=== PATIENT | female | born 1965 | race Caucasian/White ===

== ENCOUNTER 2017-04-10 15:06 | Emergency (ER) | payer MEDICAID, OTHER ==
[~2017-04-10] VITALS: Ht 165.1 cm; Wt 66.9 kg
[~2017-04-10 15:06] MED LIST: AUGM875T27 PO; IBUP-1022 PO; IBUP100S5 PO; KETO-13 PO; NICO21PAT TD; NO HISTORICAL MEDS; NORC5TAB PO
[2017-04-10 15:07] VITALS: BP 143/86
[2017-04-10] MEDS ORDERED: ADACEL/BOOSTRIX VACCINE (DIPHTH/PERTUSS/ACELL/TETANUS)0.5ML SYR (90715) IM ONE (15:30)
[2017-04-10] MEDS ORDERED: IBUP80TA PO (15:35)
[2017-04-10] MEDS ORDERED: BACT800T5 PO (15:35)
[2017-04-10] MEDS ORDERED: BACTRIM 160MG/800MG DS TAB PO ONE (15:45)
== END 2017-04-10 16:00 | disposition home or self-care (01) ==
LOC: MERGE 15:06 → M ED 15:06
DX: S91.332A Puncture wound without foreign body, left foot, initial encounter (principal); W45.0XXA Nail entering through skin, initial encounter; Y92.099 Unspecified place in other non-institutional residence as the place of occurrence of the external cause; Y93.9 Activity, unspecified; Y99.9 Unspecified external cause status; F17.200 Nicotine dependence, unspecified, uncomplicated; Z88.0 Allergy status to penicillin

== ENCOUNTER 2017-05-07 14:16 | Emergency (ER) | payer OTHER ==
[~2017-05-07] VITALS: Ht 165.1 cm; Wt 63.6 kg
[~2017-05-07 14:16] MED LIST changes: +BACT800T5 PO; +IBUP80TA PO
[2017-05-07] MEDS ORDERED: IBUP-1114 PO (14:33)
--- NOTE | 2017-05-07 15:59 | REP ---
No rib fracture or incidental bony destructive lesion. There are clips in the gallbladder fossa. There is a right upper quadrant calcification 7 mm in diameter. This overlies the liver and right kidney. It appears to be somewhat posterior and suggests an intrarenal calculus. Impression: No rib fracture seen. No active disease in the chest. Post cholecystectomy. Possible 7 mm intrarenal calculus right kidney. Signed by Lopez Clark MD 05/07/2017 05:11 P
[2017-05-07] MEDS ORDERED: IBUP-1022 PO (16:23)
[2017-05-07] MEDS ORDERED: NORCOTAB PO (16:23)
[2017-05-07 16:29] VITALS: BP 148/82
== END 2017-05-07 16:33 | disposition home or self-care (01) ==
LOC: M ED 14:16
DX: S20.219A Contusion of unspecified front wall of thorax, initial encounter (principal); X58.XXXA Exposure to other specified factors, initial encounter; Y92.9 Unspecified place or not applicable; Y93.9 Activity, unspecified; Y99.9 Unspecified external cause status; F17.200 Nicotine dependence, unspecified, uncomplicated; Z88.0 Allergy status to penicillin

== ENCOUNTER 2017-10-03 06:10 | Emergency (ER) | payer OTHER, SELFPAY ==
[2017-10-03 07:19] LABS: BASO % 0.6 % (0.0-1.0); EOS # 0.1 10^3/uL (0.0-0.50); HEMATOCRIT 42.1 % (36.0-47.0); HEMOGLOBIN 14.8 g/dl (12.0-16.0); IMMATURE GRANULOCYTE % 0.1 % (0-0); LYMPH # 2.6 10^3/uL (1.5-4.5); LYMPH % 37.9 % (24.0-44.0); MEAN CORPUSCULAR HEMOGLOBIN 30.8 pg (27.0-33.0); MEAN CORPUSCULAR HGB CONC 35.2 g/dl (32.0-36.5); MEAN CORPUSCULAR VOLUME 87.7 fl (80.0-96.0); MONO # 0.3 10^3/uL (0.0-0.8); MONO % 4.5 % (0.0-5.0); NEUTROPHILS # 3.8 10^3/uL (1.8-7.7); NEUTROPHILS % 54.9 % (36.0-66.0); PLATELET COUNT, AUTOMATED 193 10^3/uL (150-450); RED CELL DISTRIBUTION WIDTH 11.3 % (11.5-14.5); WHITE BLOOD COUNT 6.9 10^3/uL (4.0-10.0)
[2017-10-03] MEDS: MORPHINE 2 MG/ML 1ML SYRINGE IV (07:19)
[2017-10-03] MEDS: ONDANSETRON 4MG/2ML VIAL (J2405) IV (07:19)
[2017-10-03] MEDS: NS 1,000 ML IV (07:19)
[2017-10-03 07:28] LABS: KETONE, URINE AUTO RFX TRACE mg/dL (NEGATIVE); LEUKOCYTE ESTERASE UR AUTO RFX NEGATIVE (NEGATIVE); NITRITE, URINE AUTO RFX NEGATIVE (NEGATIVE); RBC, URINE AUTO RFX 1 /HPF (0-3); SPECIFIC GRAVITY UR AUTO RFX 1.013 (1.002-1.035); SQUAM EPITHELIAL CELL UR AURFX 1 /HPF (0-6); WBC, URINE AUTO RFX 4 /HPF (0-3)
[2017-10-03 07:29] LABS: ALBUMIN 4.2 GM/DL (3.2-5.2); ALBUMIN/GLOBULIN RATIO 1.14 (1.00-1.93); ALKALINE PHOSPHATASE 76 U/L (45-117); ALT/SGPT 36 U/L (12-78); AMYLASE 60 U/L (25-115); ANION GAP 6 MEQ/L (8-16); AST/SGOT 23 U/L (7-37); BILIRUBIN,DIRECT 0.1 MG/DL (0.0-0.2); BILIRUBIN,TOTAL 0.4 MG/DL (0.2-1.0); BLOOD UREA NITROGEN 18 MG/DL (7-18); CALCIUM LEVEL 9.1 MG/DL (8.5-10.1); CARBON DIOXIDE LEVEL 27 MEQ/L (21-32); CHLORIDE LEVEL 109 MEQ/L (98-107); CREATININE FOR GFR 0.79 MG/DL (0.55-1.02); GLOMERULAR FILTRATION RATE > 60.0 (>51); GLUCOSE, FASTING 94 MG/DL (70-105); LIPASE 92 U/L (73-393); POTASSIUM SERUM 3.7 MEQ/L (3.5-5.1); SODIUM LEVEL 142 MEQ/L (136-145); TOTAL PROTEIN 7.9 GM/DL (6.4-8.2)
== END 2017-10-03 10:08 | disposition home or self-care (01) ==
LOC: M ED 06:10
DX: K59.00 Constipation, unspecified (principal); R03.0 Elevated blood-pressure reading, without diagnosis of hypertension; F17.200 Nicotine dependence, unspecified, uncomplicated; Z88.0 Allergy status to penicillin
CPT/HCPCS: J2405

== ENCOUNTER 2018-09-28 12:41 | Emergency (ER) | payer MEDICARE, OTHER ==
[~2018-09-28] VITALS: Ht 167.6 cm; Wt 68.2 kg
[~2018-09-28 12:41] MED LIST changes: +COLA100C5 PO; +IBUP-1114 PO; +MIRA3350 PO; +NORCOTAB PO
[2018-09-28] MEDS ORDERED: IBUPROFEN 600 MG TAB PO ONE (13:30)
[2018-09-28] MEDS ORDERED: PHENAZOPYRIDINE 100 MG TAB PO ONE (13:30)
[2018-09-28] MEDS ORDERED: CIPROFLOXACIN 500 MG TAB PO ONE (13:30)
[2018-09-28 13:33] VITALS: BP 194/89
[2018-09-28] MEDS ORDERED: CIPR-249 PO (13:40)
[2018-09-28] MEDS ORDERED: DIFL150T PO (13:40)
[2018-09-28] MEDS ORDERED: PYRI1TAB5 PO (13:40)
[2018-09-28 14:51] LABS: CHLAMYDIA DNA AMPLIFICATION NEGATIVE (NEGATIVE); GC DNA AMPLIFICATION NEGATIVE (NEGATIVE)
[2018-09-29] MEDS ORDERED: LISI10TA4 PO (21:20)
== END 2018-09-28 13:48 | disposition home or self-care (01) ==
LOC: M ED 12:41
DX: N39.0 Urinary tract infection, site not specified (principal); B37.3 Candidiasis of vulva and vagina; Z88.0 Allergy status to penicillin

== ENCOUNTER 2018-09-29 19:42 | Emergency (ER) | payer MEDICARE ==
[~2018-09-29] VITALS: Ht 167.6 cm; Wt 68.2 kg
[~2018-09-29 19:42] MED LIST changes: +CIPR-249 PO; +DIFL150T PO; +PYRI1TAB5 PO
[2018-09-29] MEDS ORDERED: MECLIZINE 25 MG TABLET PO ONE (20:15)
[2018-09-29] MEDS ORDERED: NS 1,000 ML IV ONE (20:15)
[2018-09-29] MEDS ORDERED: METOCLOPRAMIDE INJ 10MG/2ML VIAL (J2765) IV ONE (20:15)
[2018-09-29 20:26] LABS: BASO % 0.4 % (0.0-1.0); EOS # 0.1 10^3/uL (0.0-0.50); EOS % 1.8 % (0.0-3.0); HEMOGLOBIN 14.6 g/dl (12.0-15.5); LYMPH # 1.4 10^3/uL (1.5-4.5); LYMPH % 26.3 % (24.0-44.0); MEAN CORPUSCULAR HEMOGLOBIN 30.6 pg (27.0-33.0); MEAN CORPUSCULAR VOLUME 90.1 fl (80.0-96.0); MONO # 0.4 10^3/uL (0.0-0.8); MONO % 7.2 % (0.0-5.0); NEUTROPHILS # 3.3 10^3/uL (1.8-7.7); NEUTROPHILS % 63.7 % (36.0-66.0); PLATELET COUNT, AUTOMATED 201 10^3/uL (150-450); RED BLOOD COUNT 4.77 10^6/uL (4.00-5.40); WHITE BLOOD COUNT 5.1 10^3/uL (4.0-10.0)
[2018-09-29] MEDS ORDERED: LABETALOL HCL 100 MG/20 ML VIAL IV STA (20:44)
[2018-09-29 20:59] VITALS: BP 175/98
[2018-09-29 21:04] LABS: ALBUMIN 3.4 GM/DL (3.2-5.2); ALT/SGPT 36 U/L (12-78); BILIRUBIN,DIRECT 0.1 MG/DL (0.0-0.2); BILIRUBIN,TOTAL 0.3 MG/DL (0.2-1.0); BLOOD UREA NITROGEN 14 MG/DL (7-18); CALCIUM LEVEL 8.7 MG/DL (8.5-10.1); CARBON DIOXIDE LEVEL 24 MEQ/L (21-32); CHLORIDE LEVEL 109 MEQ/L (98-107); CPK CREATINE PHOSPHOKINASE 47 U/L (26-192); CREATININE FOR GFR 0.68 MG/DL (0.55-1.30); GLOMERULAR FILTRATION RATE > 60.0 (>51); GLUCOSE, FASTING 94 MG/DL (70-100); MB/CK RELATIVE INDEX 2.13 (< OR =4); POTASSIUM SERUM 3.9 MEQ/L (3.5-5.1); SODIUM LEVEL 144 MEQ/L (136-145); TOTAL PROTEIN 6.9 GM/DL (6.4-8.2); TROPONIN I < 0.02 NG/ML (< 0.10)
[2018-09-29 21:05] LABS: ACETAMINOPHEN LEVEL < 2.0 UG/ML (10.0-30.0); ETHYL ALCOHOL (ETHANOL) < 0.003 % (0.000-0.010)
--- NOTE | 2018-09-29 21:12 | REPVR ---
EXAM: CT Head Without Contrast EXAM DATE/TIME: 09/29/2018 8:25 PM CLINICAL HISTORY: 53 years old, female; Signs and symptoms; Altered mental status/memory loss TECHNIQUE: Axial computed tomography images of the head/brain without contrast. All CT scans at this facility use at least one of these dose optimization techniques: automated exposure control; mA and/or kV adjustment per patient size (includes targeted exams where dose is matched to clinical indication); or iterative reconstruction. COMPARISON: No relevant prior studies available. FINDINGS: Brain: No CT evidence of acute intracranial hemorrhage or acute territorial infarction. No significant mass effect or midline shift. Basal cisterns patent. Ventricles: Normal in size and configuration. Bones/joints: No acute osseous abnormality. Sinuses: Grossly unremarkable. Mastoid air cells: Grossly unremarkable. Soft tissues: Grossly unremarkable. IMPRESSION: No CT evidence of acute intracranial pathology. Electronically signed by: Kelechi Cesar On 09/29/2018 21:11:49 PM
[2018-09-29] MEDS ORDERED: LISINOPRIL 10 MG TAB PO ONE (21:15)
[2018-09-29] MEDS ORDERED: LISI10TA4 PO (21:20)
--- NOTE | 2018-09-30 08:27 | REP ---
Chest x-ray: Two views. History: Altered mental status. Comparison study: October 03, 2017. Findings: The lungs are symmetrically aerated and clear. Pleural angles are sharp. Heart size is normal. No significant bony abnormality is seen. Impression: Negative chest x-ray. Electronically Signed by Lopez Clark MD 09/30/2018 08:18 A
--- NOTE | 2018-09-30 14:42 | ECGEPIP ---
Stationary ECG Study [facility] - ED Test Date: 2018-09-29 Pat Name: SHEILA WALLACE Department: Room: - Gender: F Chemistry Teacher: : 1965 Requested By: CORA SUAZO Order Number: [id number] Reading MD: Jo-Ann Sotelo Measurements Intervals [place] Rate: 57 P: 69 [place]: 163 QRS: -9 QRSD: 84 T: 24 QT: 392 QTc: 384 Interpretive Statements SINUS BRADYCARDIA SEPTAL MYOCARDIAL INFARCTION, PROBABLY OLD SIMILAR 10/03/17 Electronically Signed On 09-30-2018 14:42:18 EST by Jo-Ann Sotelo
== END 2018-09-29 21:46 | disposition home or self-care (01) ==
LOC: M ED 19:42
DX: N39.0 Urinary tract infection, site not specified (principal); I10 Essential (primary) hypertension; Z82.49 Family history of ischemic heart disease and other diseases of the circulatory system; Z79.899 Other long term (current) drug therapy; Z88.0 Allergy status to penicillin; F17.210 Nicotine dependence, cigarettes, uncomplicated
CPT/HCPCS: 70450; 71046; 80048; 80076; 82550; 82553; 84443; 84484; 85025; 93005; 93041; 94760; 96374; 99284; G0480; J2765

== ENCOUNTER 2018-12-09 19:28 | Emergency (ER) | payer MEDICARE, OTHER ==
[~2018-12-09] VITALS: Ht 165.1 cm; Wt 68.2 kg
[2018-12-09 19:28] VITALS: BP 153/93
[~2018-12-09 19:28] MED LIST changes: +HYDR-3715 PO; +LISI10TA4 PO; +NICO21DI3 TD; -NICO21PAT TD; -NORCOTAB PO
[2018-12-09] MEDS ORDERED: ONDANSETRON 4MG/2ML VIAL (J2405) IV ONE (21:15)
[2018-12-09] MEDS ORDERED: NS 1,000 ML IV ONE (21:15)
--- NOTE | 2018-12-09 21:29 | ECGEPIP ---
Stationary ECG Study [facility] - ED Test Date: 2018-12-09 Pat Name: SHEILA WALLACE Department: Room: - Gender: F Software Trainer: HERLINDA : 1965 Requested By: LIT JACOBSEN PA-C Order Number: [id number] Reading MD: Jo-Ann Sotelo Measurements Intervals [place] Rate: 74 P: 70 DC: 158 QRS: -20 QRSD: 86 T: 40 QT: 365 QTc: 407 Interpretive Statements SINUS RHYTHM DELAYED R PROGRESSION NSTTW ABNORMALITY INCREASED RATE 09/29/18 Electronically Signed On 12-09-2018 21:28:40 EDT by Jo-Ann Sotelo
[2018-12-09 22:05] LABS: BASO % 0.6 % (0.0-1.0); EOS # 0.1 10^3/uL (0.0-0.50); EOS % 1.1 % (0.0-3.0); HEMOGLOBIN 15.5 g/dl (12.0-15.5); LYMPH # 0.7 10^3/uL (1.5-4.5); LYMPH % 10.7 % (24.0-44.0); MEAN CORPUSCULAR HGB CONC 33.7 g/dl (32.0-36.5); MONO # 0.5 10^3/uL (0.0-0.8); MONO % 7.7 % (0.0-5.0); NEUTROPHILS % 79.7 % (36.0-66.0); PLATELET COUNT, AUTOMATED 178 10^3/uL (150-450); RED BLOOD COUNT 5.17 10^6/uL (4.00-5.40); WHITE BLOOD COUNT 6.2 10^3/uL (4.0-10.0)
[2018-12-09 22:23] LABS: INR 1.07; PARTIAL THROMBOPLASTIN TIME 28.6 SECONDS (25.4-37.6)
[2018-12-09 22:26] LABS: ALT/SGPT 29 U/L (12-78); BILIRUBIN,TOTAL 0.7 MG/DL (0.2-1.0); BLOOD UREA NITROGEN 12 MG/DL (7-18); CALCIUM LEVEL 9.2 MG/DL (8.5-10.1); CARBON DIOXIDE LEVEL 26 MEQ/L (21-32); CHLORIDE LEVEL 107 MEQ/L (98-107); CK-MB VALUE MASS < 1.0 NG/ML (<3.6); CPK CREATINE PHOSPHOKINASE 44 U/L (26-192); CREATININE FOR GFR 0.88 MG/DL (0.55-1.30); GLOMERULAR FILTRATION RATE > 60.0 (>51); GLUCOSE, FASTING 107 MG/DL (70-100); MB/CK RELATIVE INDEX 2.27 (< OR =4); SODIUM LEVEL 141 MEQ/L (136-145)
[2018-12-09 22:27] LABS: BILIRUBIN,DIRECT 0.2 MG/DL (0.0-0.2); C REACTIVE PROTEIN QUANTITATIV 0.98 MG/DL (0.00-0.30); LIPASE 80 U/L (73-393); NT-PRO BNP 98 PG/ML (<125); TOTAL PROTEIN 7.5 GM/DL (6.4-8.2); TROPONIN I < 0.02 NG/ML (< 0.10)
[2018-12-09] MEDS ORDERED: ISOVUE-370 76% 125ML VIAL (Q9967 PER ML) As Ordered ONE (22:31)
[2018-12-09 22:38] LABS: ERYTHROCYTE SEDIMENTATION RATE 5 mm/hr (0-30)
--- NOTE | 2018-12-09 23:36 | REPVR ---
EXAM: CT Angiography Chest With Contrast EXAM DATE/TIME: 12/09/2018 10:34 PM CLINICAL HISTORY: 53 years old, female; Pain; Chest pain; Additional info: SOB TECHNIQUE: Imaging protocol: Axial computed tomographic angiography images of the chest with intravenous contrast using CT angiography protocol. Coronal and sagittal reformatted images were created and reviewed. 3D rendering: MIP reconstructed images were created and reviewed. Radiation optimization: All CT scans at this facility use at least one of these dose optimization techniques: automated exposure control; mA and/or kV adjustment per patient size (includes targeted exams where dose is matched to clinical indication); or iterative reconstruction. Contrast material: ISOVUE 370 Contrast volume: 100 ml Contrast route: IV COMPARISON: No relevant prior studies available. FINDINGS: Pulmonary arteries: Contrast opacification satisfactory. No intraluminal filling defect. Aorta: Unremarkable. No aneurysm or dissection. Lungs: Mild central peribronchial thickening, suggestive of airway inflammation. No consolidation. Pleural space: Unremarkable. No pneumothorax. No pleural effusion. Heart: Unremarkable. No cardiomegaly. No pericardial effusion. Mediastinum: Small hiatal hernia. Lymph nodes: No pathologically enlarged lymph nodes. Bones/joints: No acute osseous abnormality. Osteopenia. Mild degenerative changes. Soft tissues: Unremarkable. IMPRESSION: 1. No CT evidence of pulmonary embolism. 2. Mild central peribronchial thickening, suggestive of airway inflammation. 3. Additional findings, as above. Electronically signed by: Kelechi Cesar On 12/09/2018 23:36:24 PM
--- NOTE | 2018-12-09 23:43 | REPVR ---
EXAM: CT Abdomen and Pelvis With Contrast EXAM DATE/TIME: 12/09/2018 10:34 PM CLINICAL HISTORY: 53 years old, female; Pain; Abdominal pain; Generalized; Additional info: SOB TECHNIQUE: Imaging protocol: Axial computed tomography images of the abdomen and pelvis with intravenous contrast. Coronal and sagittal reformatted images were created and reviewed. Radiation optimization: All CT scans at this facility use at least one of these dose optimization techniques: automated exposure control; mA and/or kV adjustment per patient size (includes targeted exams where dose is matched to clinical indication); or iterative reconstruction. Contrast material: ISOVUE 370 Contrast volume: 100 ml Contrast route: IV COMPARISON: CT ABD PELVIS W/O CONTRAST 10/03/2017 8:49 AM FINDINGS: ABDOMEN: Liver: Mild hepatomegaly. Claudia-centimeter hemangiomata in each hepatic lobe. Gallbladder and bile ducts: Status post cholecystectomy. No biliary ductal dilatation. Pancreas: Unremarkable. Spleen: Unremarkable. Adrenals: Unremarkable. Kidneys and ureters: Left renal cortical scarring with associated parenchymal calcification. 5 mm nonobstructing right renal calculus. No hydronephrosis. Stomach and bowel: Moderate amount of retained stool in the colon. No obstruction. No bowel wall thickening. No pneumatosis. Appendix: Normal. PELVIS: Bladder: Unremarkable. Reproductive: Unremarkable. ABDOMEN and PELVIS: Intraperitoneal space: No free fluid. No organized fluid collection. No free air. Bones/joints: No acute osseous abnormality. Osteopenia. Degenerative changes. Soft tissues: Small, fat-containing umbilical hernia. Vasculature: Unremarkable. No aneurysm. Lymph nodes: No pathologically enlarged lymph nodes. IMPRESSION: 1. No CT evidence of acute intra-abdominal or pelvic pathology. 2. Additional findings, as above. Electronically signed by: Kelechi Cesra On 12/09/2018 23:42:35 PM
[2018-12-10] MEDS ORDERED: ALBUTEROL SULFATE 2.5 MG/0.5 ML INH NEB SOLN NEB ONE (00:15)
[2018-12-10] MEDS ORDERED: methylPREDNISolone INJ 125 MG/2 ML VIAL (J2930) IV ONE (00:15)
[2018-12-10] MEDS ORDERED: VENTAER INH (01:22)
[2018-12-10] MEDS ORDERED: PRED20TA PO (01:22)
[2018-12-10] MEDS ORDERED: LEVO750T13 PO (01:22)
[2018-12-10] MEDS ORDERED: MIRA3350 PO (01:22)
[2018-12-12 14:21] LABS: CARDIOLIPIN IGA ANTIBODY <9 APL U/mL (0-11); CARDIOLIPIN IGG ANTIBODY <9 GPL U/mL (0-14); CARDIOLIPIN IGM ANTIBODY <9 MPL U/mL (0-12); PHOSPHOLIPIDS LEVEL 206 mg/dL (150-250)
[2018-12-13 14:18] LABS: PROTEIN C FUNCTIONAL ACTIVITY 45 % (73-180); PROTEIN S FUNCTIONAL ACTIVITY 72 % (63-140)
== END 2018-12-10 01:35 | disposition home or self-care (01) ==
LOC: M ED 19:28
DX: J20.9 Acute bronchitis, unspecified (principal); N39.0 Urinary tract infection, site not specified; K59.00 Constipation, unspecified; I10 Essential (primary) hypertension; Z87.442 Personal history of urinary calculi; F17.210 Nicotine dependence, cigarettes, uncomplicated; Z88.0 Allergy status to penicillin; Z79.899 Other long term (current) drug therapy
CPT/HCPCS: 36415; 71275; 74177; 80048; 80076; 81001; 81241; 82550; 82553; 83690; 83880; 84311; 84484; 85025; 85303; 85305; 85610; 85652; 85730; 86140; 86147; 87086; 93005; 96374; 96375; 99284; J2405; J2930; Q9967

== ENCOUNTER 2018-12-12 09:40 | Emergency (ER) | payer OTHER ==
[~2018-12-12] VITALS: Ht 165.1 cm; Wt 68.2 kg
[~2018-12-12 09:40] MED LIST changes: +LEVO750T13 PO; +PRED20TA PO; +VENTAER INH
[2018-12-12 09:41] VITALS: BP 147/89
== END 2018-12-12 10:33 | disposition home or self-care (01) ==
LOC: M ED 09:40
DX: J40 Bronchitis, not specified as acute or chronic (principal); J44.9 Chronic obstructive pulmonary disease, unspecified; I10 Essential (primary) hypertension; F17.210 Nicotine dependence, cigarettes, uncomplicated; Z79.899 Other long term (current) drug therapy; Z79.2 Long term (current) use of antibiotics; Z88.0 Allergy status to penicillin

== ENCOUNTER 2019-10-06 19:36 | Emergency (ER) | payer BC, OTHER ==
[~2019-10-06] VITALS: Ht 165.1 cm; Wt 77.3 kg
[2019-10-06] MEDS ORDERED: FLUCONAZOLE 50MG TABLET PO ONE (21:30)
[2019-10-06] MEDS ORDERED: FLUC150T PO (21:30)
[2019-10-06] MEDS ORDERED: CIPR-249 PO (21:30)
[2019-10-06] MEDS ORDERED: CIPROFLOXACIN 500 MG TAB PO ONE (21:30)
[2019-10-06 21:51] VITALS: BP 128/82
== END 2019-10-06 21:53 | disposition home or self-care (01) ==
LOC: M ED 19:36
DX: N39.0 Urinary tract infection, site not specified (principal); B37.3 Candidiasis of vulva and vagina; Z88.0 Allergy status to penicillin

== ENCOUNTER 2021-12-13 15:55 | Emergency (ER) | payer BC, SELFPAY ==
[~2021-12-13] VITALS: Ht 162.6 cm; Wt 68.2 kg
[~2021-12-13 15:55] MED LIST changes: +FLUC150T9 PO; +LISI10TA22 PO; -LISI10TA4 PO
[2021-12-13] MEDS ORDERED: CLINDAMYCIN 150MG CAPSULE PO ONE (20:05)
[2021-12-13] MEDS ORDERED: methylPREDNISolone 125MG 2ML VIAL IM ONE (20:05)
[2021-12-13] MEDS ORDERED: dexameTHASONE 20MG/5ML VIAL (J1100 PER 1MG) IV ONE (20:05)
[2021-12-13] MEDS ORDERED: CLEO150C PO (20:06)
[2021-12-13] MEDS ORDERED: CLEO300C2 PO (20:06)
[2021-12-13 20:16] VITALS: BP 143/78
== END 2021-12-13 20:50 | disposition home or self-care (01) ==
LOC: M ED 15:55
DX: L03.211 Cellulitis of face (principal); K04.7 Periapical abscess without sinus; R68.84 Jaw pain; F17.200 Nicotine dependence, unspecified, uncomplicated; Z88.0 Allergy status to penicillin
CPT/HCPCS: 96372; 99283; J2930

== ENCOUNTER 2022-06-11 15:11 | Emergency (ER) | payer SELFPAY ==
[~2022-06-11] VITALS: Ht 167.6 cm; Wt 70.5 kg
[~2022-06-11 15:11] MED LIST changes: +CLEO150C PO; +CLEO300C2 PO; +LEVO1TAB40 PO; -LEVO750T13 PO
[2022-06-11] MEDS ORDERED: BOOSTRIX/ADACEL VACCINE (DIPHTH/PERTUSS/ACELL/TETANUS) 0.5ML SYR IM ONE (16:05)
[2022-06-11] MEDS ORDERED: ACETAMINOPHEN 325 MG TAB PO ONE (16:05)
[2022-06-11 16:42] VITALS: BP 144/88
== END 2022-06-11 16:44 | disposition home or self-care (01) ==
LOC: M ED 15:11
DX: S92.251A Displaced fracture of navicular [scaphoid] of right foot, initial encounter for closed fracture (principal); W19.XXXA Unspecified fall, initial encounter; I10 Essential (primary) hypertension; Z87.442 Personal history of urinary calculi; Z88.0 Allergy status to penicillin; Y92.9 Unspecified place or not applicable; Y93.9 Activity, unspecified; Y99.9 Unspecified external cause status

== ENCOUNTER → 2022-07-06 | Outpatient (CLI) | payer SELFPAY | LOC: M SOG 08:08 | PROVIDERS: ATTEND Orthopaedic Surgery Hand Surgery | DX: S92.251A Displaced fracture of navicular [scaphoid] of right foot, initial encounter for closed fracture (principal) ==

== ENCOUNTER 2023-10-22 07:28 | Emergency (ER) | payer SELFPAY ==
[~2023-10-22] VITALS: Ht 165.1 cm; Wt 83.8 kg
[2023-10-22 08:11] LABS: APPEARANCE, URINE CLEAR (CLEAR); BACTERIA, URINE AUTO NEGATIVE (NEGATIVE); BILIRUBIN, URINE AUTO NEGATIVE (NEGATIVE); BLOOD, URINE BLOOD 1+ (NEGATIVE); COLOR, URINE STRAW (YELLOW); GLUCOSE, URINE (UA) AUTO NEGATIVE (NEGATIVE); KETONE, URINE AUTO NEGATIVE (NEGATIVE); LEUKOCYTE ESTERASE, URINE AUTO NEGATIVE (NEGATIVE); NITRITE, URINE AUTO NEGATIVE (NEGATIVE); PROTEIN, URINE AUTO NEGATIVE (NEGATIVE); RBC, URINE AUTO 1 /HPF (0-3); SPECIFIC GRAVITY URINE AUTO 1.005 (1.002-1.035); SQUAMOUS EPITHELIAL CELL UR AU 0 /HPF (0-6); UROBILINOGEN, URINE AUTO 0.2 mg/dL (0.0-2.0); WBC, URINE AUTO 1 /HPF (0-3)
[2023-10-22 09:38] LABS: BASO # 0.1 10^3/uL (0.0-0.2); BASO % 0.6 % (0.0-1.0); EOS # 0.1 10^3/uL (0.0-0.5); EOS % 1.4 % (0.0-3.0); HEMOGLOBIN 14.4 g/dl (12.0-15.5); LYMPH # 2.9 10^3/uL (1.5-5.0); LYMPH % 33.4 % (24.0-44.0); MEAN CORPUSCULAR HEMOGLOBIN 29.5 pg (27.0-33.0); MEAN CORPUSCULAR HGB CONC 32.7 g/dl (32.0-36.5); MEAN CORPUSCULAR VOLUME 90.2 fl (80.0-96.0); MONO # 0.4 10^3/uL (0.0-0.8); MONO % 4.6 % (2.0-8.0); NEUTROPHILS # 5.1 10^3/uL (1.5-8.5); NEUTROPHILS % 59.8 % (36.0-66.0); PLATELET COUNT, AUTOMATED 213 10^3/uL (150-450); RED BLOOD COUNT 4.88 10^6/uL (4.00-5.40); WHITE BLOOD COUNT 8.6 10^3/uL (4.0-10.0)
[2023-10-22 10:09] LABS: BLOOD UREA NITROGEN 14 MG/DL (9-23); CALCIUM LEVEL 9.3 MG/DL (8.5-10.1); CARBON DIOXIDE LEVEL 28 MMOL/L (20-31); CHLORIDE LEVEL 106 MMOL/L (98-107); CREATININE FOR GFR 0.74 MG/DL (0.55-1.30); GLOMERULAR FILTRATION RATE > 60.0 (>51); GLUCOSE, FASTING 100 MG/DL (60-100); POTASSIUM SERUM 4.1 MMOL/L (3.5-5.1); SODIUM LEVEL 140 MMOL/L (136-145)
[2023-10-22] MEDS ORDERED: PYRI1TAB5 PO (10:52)
[2023-10-22 11:08] VITALS: BP 160/100; TEMP 97.2; O2SAT 98
== END 2023-10-22 11:15 | disposition home or self-care (01) ==
LOC: M ED 07:28
DX: N20.0 Calculus of kidney (principal); R30.0 Dysuria; I10 Essential (primary) hypertension; Z88.0 Allergy status to penicillin; Z79.899 Other long term (current) drug therapy

== ENCOUNTER 2024-02-25 20:42 | Inpatient (IN) | payer OTHER, SELFPAY ==
[~2024-02-25] VITALS: Ht 162.6 cm; Wt 63.6 kg
[2024-02-26 00:43] LABS: BASO % 0.5 % (0.0-1.0); EOS # 0.1 10^3/uL (0.0-0.5); EOS % 1.6 % (0.0-3.0); HEMATOCRIT 39.9 % (36.0-47.0); HEMOGLOBIN 13.4 g/dl (12.0-15.5); LYMPH # 1.9 10^3/uL (1.5-5.0); LYMPH % 25.2 % (24.0-44.0); MEAN CORPUSCULAR HEMOGLOBIN 29.9 pg (27.0-33.0); MEAN CORPUSCULAR HGB CONC 33.6 g/dl (32.0-36.5); MEAN CORPUSCULAR VOLUME 89.1 fl (80.0-96.0); MONO # 0.3 10^3/uL (0.0-0.8); MONO % 3.5 % (2.0-8.0); NEUTROPHILS # 5.1 10^3/uL (1.5-8.5); NEUTROPHILS % 68.5 % (36.0-66.0); PLATELET COUNT, AUTOMATED 189 10^3/uL (150-450); RED BLOOD COUNT 4.48 10^6/uL (4.00-5.40); WHITE BLOOD COUNT 7.4 10^3/uL (4.0-10.0)
[2024-02-26 01:24] LABS: BLOOD UREA NITROGEN 11 MG/DL (9-23); CALCIUM LEVEL 9.2 MG/DL (8.5-10.1); CARBON DIOXIDE LEVEL 28 MMOL/L (20-31); CHLORIDE LEVEL 108 MMOL/L (98-107); GLOMERULAR FILTRATION RATE > 60.0 (>51); GLUCOSE, FASTING 165 MG/DL (60-100); POTASSIUM SERUM 3.7 MMOL/L (3.5-5.1); SODIUM LEVEL 141 MMOL/L (136-145)
[2024-02-26] MEDS: cefTRIAXone SOD 1 GM in D5W MINI-BAG PLUS 50 ML IV ONE (03:05)
[2024-02-26] MEDS: LABETALOL 100MG/20ML VIAL IV STA (03:22)
[2024-02-26] MEDS ORDERED: ACETAMINOPHEN TAB 650MG DOSE (2X325MG) PO PRN (05:55)
[2024-02-26] MEDS: amLODIPine 5 MG TAB PO SCH (06:12)
[2024-02-26] MEDS: NS 1,000 ML IV SCH (06:12)
[2024-02-26] MEDS ORDERED: HOME MED LIST COMPLETE! XX SCH (07:35)
[2024-02-26 08:04] VITALS: BP 150/91; TEMP 97.7; O2SAT 99
[2024-02-26] MEDS ORDERED: PHEN1TAB73 PO (08:13)
[2024-02-26] MEDS ORDERED: AMLO1TAB25 PO (08:13)
[2024-02-26] MEDS ORDERED: LEVO1TAB39 PO (08:13)
[2024-02-26 09:04] VITALS: BP 150/91; TEMP 97.7; O2SAT 99
[2024-02-26] MEDS: LevoFLOXacin 500 MG TABLET PO SCH (09:21)
[2024-02-26] MEDS: amLODIPine 5 MG TAB PO ONE (09:22)
[2024-02-26] MEDS: ENOXAPARIN 40MG/0.4ML SYRINGE (J1650 PER 10MG) SC SCH (09:22)
[2024-02-26] MEDS ORDERED: SELF1KIT MC (09:51)
[2024-02-26] MEDS: PHENAZOPYRIDINE 100 MG TAB PO SCH (10:08)
[2024-02-26 12:00] VITALS: BP 152/78; TEMP 98.1; O2SAT 99
[2024-02-26] MEDS ORDERED: LOSA25TA13 PO (14:11)
[2024-02-26 14:30] VITALS: BP 152/91
[2024-02-26] MEDS: cloNIDine 0.1MG TABLET PO ONE (14:30)
[2024-02-26 15:42] VITALS: BP 106/68
[2024-02-26] MEDS ORDERED: cloNIDine 0.1MG TABLET PO ONE (15:45)
[2024-02-26] MEDS ORDERED: LOSA50TA28 PO (15:45)
[2024-02-26] MEDS ORDERED: LOSARTAN 50MG TABLET PO ONE (15:45)
[2024-02-26] MEDS ORDERED: LOSARTAN 25 MG TAB PO SCH (21:00)
[2024-02-27] MEDS ORDERED: cefTRIAXone SOD 1 GM in D5W MINI-BAG PLUS 50 ML IV SCH (03:00)
== END 2024-02-26 17:14 | disposition home or self-care (01) | DRG 463 ==
LOC: M ED 20:42 → M ED INP 02-26 05:51 → M MSPAV 02-26 09:05
PROVIDERS: ADMIT Internal Medicine; ATTEND General Practice
DX: N39.0 Urinary tract infection, site not specified (principal); I10 Essential (primary) hypertension; I16.0 Hypertensive urgency; Z87.891 Personal history of nicotine dependence; R91.1 Solitary pulmonary nodule; B96.20 Unspecified Escherichia coli [E. coli] as the cause of diseases classified elsewhere; N20.0 Calculus of kidney; Z79.899 Other long term (current) drug therapy; Z88.0 Allergy status to penicillin

== ENCOUNTER 2024-12-27 22:17 | Emergency (ER) | payer OTHER ==
[~2024-12-27] VITALS: Ht 165.1 cm; Wt 76.9 kg
[~2024-12-27 22:17] MED LIST changes: +AMLO1TAB25 PO; +CEPH500C PO; +LEVO1TAB39 PO; +LOSA25TA13 PO; +LOSA50TA28 PO; +PHEN1TAB73 PO; +SELF1KIT MC
[2024-12-27 22:51] LABS: KETONE, URINE AUTO RFX NEGATIVE (NEGATIVE); LEUKOCYTE ESTERASE UR AUTO RFX NEGATIVE (NEGATIVE); NITRITE, URINE AUTO RFX NEGATIVE (NEGATIVE); RBC, URINE AUTO RFX 1 /HPF (0-3); SQUAM EPITHELIAL CELL UR AURFX 0 /HPF (0-6); WBC, URINE AUTO RFX 1 /HPF (0-3)
[2024-12-27 23:15] LABS: BASO % 0.7 % (0.0-1.0); EOS # 0.1 10^3/uL (0.0-0.5); EOS % 1.3 % (0.0-3.0); HEMATOCRIT 42.4 % (36.0-47.0); HEMOGLOBIN 14.1 g/dl (12.0-15.5); LYMPH # 1.5 10^3/uL (1.5-5.0); LYMPH % 23.8 % (24.0-44.0); MEAN CORPUSCULAR HEMOGLOBIN 29.5 pg (27.0-33.0); MEAN CORPUSCULAR HGB CONC 33.3 g/dl (32.0-36.5); MEAN CORPUSCULAR VOLUME 88.7 fl (80.0-96.0); MONO # 0.3 10^3/uL (0.0-0.8); MONO % 4.1 % (2.0-8.0); NEUTROPHILS # 4.3 10^3/uL (1.5-8.5); NEUTROPHILS % 69.6 % (36.0-66.0); PLATELET COUNT, AUTOMATED 188 10^3/uL (150-450); RED BLOOD COUNT 4.78 10^6/uL (4.00-5.40); WHITE BLOOD COUNT 6.1 10^3/uL (4.0-10.0)
[2024-12-27] MEDS: ONDANSETRON 4MG 2ML VIAL IV ONE (23:31)
[2024-12-27 23:32] VITALS: BP 159/88
[2024-12-27] MEDS: LOSARTAN 50MG TABLET PO ONE (23:32)
[2024-12-27] MEDS: KETOROLAC 30 MG/ML 1ML VIAL IV ONE (23:33)
[2024-12-27] MEDS: NS 500 ML IV ONE (23:34)
[2024-12-27 23:47] LABS: BLOOD UREA NITROGEN 11 MG/DL (9-23); CALCIUM LEVEL 8.7 MG/DL (8.5-10.1); CARBON DIOXIDE LEVEL 25 MMOL/L (20-31); CHLORIDE LEVEL 108 MMOL/L (98-107); GLOMERULAR FILTRATION RATE > 90.0 (>51); GLUCOSE, FASTING 101 MG/DL (60-100); MAGNESIUM LEVEL 2.1 MG/DL (1.8-2.4); POTASSIUM SERUM 3.9 MMOL/L (3.5-5.1); SODIUM LEVEL 142 MMOL/L (136-145)
[2024-12-28 01:00] VITALS: BP 153/109; TEMP 98
[2024-12-28 01:15] VITALS: O2SAT 98
== END 2024-12-28 01:21 | disposition home or self-care (01) ==
LOC: M ED 22:17
DX: R10.9 Unspecified abdominal pain (principal); N20.0 Calculus of kidney; I10 Essential (primary) hypertension; Z88.0 Allergy status to penicillin; Z79.899 Other long term (current) drug therapy; Z79.2 Long term (current) use of antibiotics; Z87.442 Personal history of urinary calculi
CPT/HCPCS: 74176; 80048; 81001; 83735; 85025; 96374; 96375; 99284; J1885; J2405